=== PATIENT | female | born 1955 | race Caucasian/White ===

== ENCOUNTER 2019-05-23 20:12 | Inpatient (IN) ==
[2019-05-29 15:56] VITALS: BP 117/55
== END 2019-05-29 17:05 | disposition short-term general hospital (02) | DRG 286 ==
LOC: P.ED 20:12 → SUATTDRO 20:13 → 2N 05-24 01:08 → SUATTDRO 05-24 01:16 → 2N 05-24 01:16
PROVIDERS: ATTEND Internal Medicine